=== PATIENT | female | born 1955 ===

== ENCOUNTER 2017-06-12 11:18 | Outpatient (CLI) | payer OTHER | END 2017-06-12 11:30 | disposition home or self-care (01) | LOC: LAB 11:18 | DX: N30.00 Acute cystitis without hematuria (principal) ==

== ENCOUNTER 2017-08-21 10:00 | Inpatient (IN) | payer OTHER ==
[~2017-08-21] VITALS: Ht 170.2 cm; Wt 77.1 kg
[2017-08-28] MEDS ORDERED: AVAPRO150 MG PO (12:10)
[2017-08-28] MEDS ORDERED: TENORMIN25 MG PO (12:11)
[2017-08-28] MEDS ORDERED: LIPITOR20 MG PO (12:11)
== END 2017-09-06 10:47 | disposition home or self-care (01) | DRG 743 ==
LOC: O/R 09-04 06:00 → OB/GYN 09-04 06:00 → SURG 09-04 07:00 → OB/GYN 09-04 14:16
PROVIDERS: Obstetrics & Gynecology; Urology
PROC: 0USG7ZZ Reposition Vagina, Via Natural or Artificial Opening (ICD-10-PCS; 2017-09-04)
PROC: 0TSD0ZZ Reposition Urethra, Open Approach (ICD-10-PCS; 2017-09-04)
PROC: 0UT9FZZ Resection of Uterus, Via Natural or Artificial Opening With Percutaneous Endoscopic Assistance (ICD-10-PCS; principal; 2017-09-04 07:00)
PROC: 0UT7FZZ Resection of Bilateral Fallopian Tubes, Via Natural or Artificial Opening With Percutaneous Endoscopic Assistance (ICD-10-PCS; 2017-09-04 07:00)
PROC: 0UT2FZZ Resection of Bilateral Ovaries, Via Natural or Artificial Opening With Percutaneous Endoscopic Assistance (ICD-10-PCS; 2017-09-04 07:00)
DX: N81.3 Complete uterovaginal prolapse (principal); N81.6 Rectocele; N39.498 Other specified urinary incontinence